=== PATIENT | female | born 1940 | race Hispanic/Latino ===

== ENCOUNTER 2017-02-20 14:11 | Inpatient (IN) | payer MEDICARE ==
[2017-02-20] MEDS ORDERED: NACL 0.9% 1000 ML 1,000 ML IV ONE (14:24)
[2017-02-20 14:59] LABS: Basophils % (Auto) 0.3 % (0.0-1.8); Eosinophils % (Auto) 0.5 % (0.0-4.3); Hematocrit 39.6 % (30.3-42.9); Hemoglobin 13.3 gm/dl (10.1-14.3); Mean Corpuscular HGB Conc 34 % (30-34); Mean Corpuscular Hemoglobin 32 pg (28-32); Mean Corpuscular Volume 95 fl (79-97); Platelet Count 259 K/mm3 (140-440); Red Blood Count 4.17 M/mm3 (3.65-5.03); Red Cell Distribution Width 13.3 % (13.2-15.2); White Blood Count 16.2 K/mm3 (4.5-11.0)
[2017-02-20 15:09] LABS: INR 1.02 (0.87-1.13)
[2017-02-20 15:15] LABS: Alanine Aminotransferase 13 units/L (7-56); Albumin 4.1 g/dL (3.9-5); Albumin/Globulin Ratio 1.3 %; Alkaline Phosphatase 65 units/L (35-129); Anion Gap 17 mmol/L; BUN/Creatinine Ratio 18; Blood Urea Nitrogen 14 mg/dL (7-17); Calcium 9.3 mg/dL (8.4-10.2); Carbon Dioxide 25 mmol/L (22-30); Chloride 101.5 mmol/L (98-107); Glucose 135 mg/dL (65-100); Lipase 19 units/L (13-60); Potassium 3.5 mmol/L (3.6-5.0); Sodium 140 mmol/L (137-145); Total Protein 7.3 g/dL (6.3-8.2)
--- NOTE | 2017-02-20 17:28 | Emergency Department Report ---
ED GI Bleed HPI - General Chief complaint: GI Bleed Stated complaint: RECTAL BLEEDING Time Seen by Provider: 02/20/17 16:38 Source: patient Mode of arrival: Ambulatory Limitations: No Limitations - History of Present Illness Initial comments: 76-year-old female with a history of elevated cholesterol and osteopenia presents to the Hospital complains of diarrhea and bloody stools. Symptoms started 2 days ago with diarrhea then subsequently became bloody yesterday and this a.m. This morning while ambulating to the bathroom patient states she had bright red blood running down her leg. She complains of intermittent crampy abdominal pain that has since resolved. Decreased by mouth intake report of nausea, vomiting, fever, recent travel, or sick contacts. Patient finished a unknown antibiotic 1 week ago for a cat bite. No previous abdominal surgery supportive. Patient states she had a unremarkable colonoscopy 6 months ago. PMD: Dr. Fernandes. Patient received previous colonoscopy from [facility] And was discharged from the practice after 3 unremarkable colonoscopies. Patient requested Dr. Eve Pollock's group since her is also seen by a GI group Severity scale (0 -10): 0 - Related Data Home Medications Medication Instructions Recorded Confirmed Last Taken AtorvaSTATin [Lipitor] 40 mg PO QHS 02/20/17 02/20/17 Unknown Ibuprofen [Motrin] 400 mg PO Q8H PRN 02/20/17 02/20/17 Unknown Allergies Allergy/AdvReac Type Severity Reaction Status Date / Time No Known Allergies Allergy Unverified 02/20/17 14:24 ED Review of Systems ROS: Stated complaint: RECTAL BLEEDING Other details as noted in HPI Comment: All other systems reviewed and negative Other: Constitutional: No fevers chills Eyes: No eye pain visual changes ENT: No ear pain or throat pain Neck: Denies pain Respiratory: Denies cough wheezing shortness of breath Cardiovascular: Denies chest pain, palpitations, syncope GI: As per HPI : Denies dysuria Musculoskeletal: Denies back pain, joint swelling Skin: Denies rash, lesions, erythema Neurologic: Denies headache, numbness, weakness Psychiatric: Denies suicidal ideation, hallucinations ED Past Medical Hx - Past Medical History Previous Medical History?: Yes Additional medical history: High cholesterol. Osteopenia - Surgical History Additional Surgical History: tonsillectomy - Social History Smoking Status: Never Smoker Substance Use Type: Alcohol - Medications Home Medications: Home Medications Medication Instructions Recorded Confirmed Last Taken Type AtorvaSTATin [Lipitor] 40 mg PO QHS 02/20/17 02/20/17 Unknown History Ibuprofen [Motrin] 400 mg PO Q8H PRN 02/20/17 02/20/17 Unknown History ED Physical Exam - General Limitations: No Limitations - Other Other exam information: General: No limitations, patient is alert in no acute distress Head exam: Atraumatic, normocephalic Eyes exam: Normal appearance, pupils equal reactive to light, extraocular movements intact ENT: Moist mucous membrane, normal oropharynx Neck exam: Normal inspection, full range of motion, no meningismus nontender Respiratory exam: Clear to auscultation bilateral, no wheezes, rales, crackles Cardiovascular: Normal rate and rhythm, normal heart sounds Abdomen: Soft, nondistended, and nontender, with normal bowel sounds, no rebound, or guarding Rectal: No external hemorrhoids or noticeable fissure. Dried bright red blood at the anus. Brown stool guaiac positive Extremity: Full range of motion normal inspection no deformity Back: Normal Inspection, full range of motion, no tenderness Neurologic: Alert, oriented x3, cranial nerves intact, no motor or sensory deficit Psychiatric: normal affect, normal mood Skin: Warm, dry, intact ED Course Vital Signs 02/20/17 02/20/17 02/20/17 14:12 15:52 16:01 Temperature 97.6 F Pulse Rate 115 H 108 H 104 H Respiratory 16 16 15 Rate Blood Pressure 125/65 144/88 O2 Sat by Pulse 95 97 Oximetry 02/20/17 02/20/17 02/20/17 16:15 16:24 16:30 Temperature Pulse Rate 93 H 115 H 103 H Respiratory 12 18 14 Rate Blood Pressure 118/69 128/65 O2 Sat by Pulse 98 100 97 Oximetry 02/20/17 02/20/17 02/20/17 16:45 17:00 17:15 Temperature Pulse Rate 102 H 93 H 93 H Respiratory 13 11 L 22 Rate Blood Pressure 122/78 117/80 117/80 O2 Sat by Pulse 100 100 Oximetry 02/20/17 18:25 Temperature Pulse Rate 103 H Respiratory 20 Rate Blood Pressure 148/101 O2 Sat by Pulse 96 Oximetry - Reevaluation(s) Reevaluation #1: 02/20/17 17:28 Normal saline initiated. Patient pain-free. CT pending - Consultations Consultation #1: 02/20/17 18:[address] Briceno GI physician registered nurse practitioner. Recommend stool studies, admission and overnight observation. Unlikely that repeat colonoscopy will be performed at this time. Rec vijay and reed ED Medical Decision Making - Lab Data Result diagrams: 02/20/17 14:40 02/20/17 14:40 Lab Results 02/20/17 02/20/17 02/20/17 Range/Units 14:40 14:40 14:40 WBC 16.2 H (4.5-11.0) K/mm3 RBC 4.17 (3.65-5.03) M/mm3 Hgb 13.3 (10.1-14.3) gm/dl Hct 39.6 (30.3-42.9) % MCV 95 (79-97) fl MCH 32 (28-32) pg MCHC 34 (30-34) % RDW 13.3 (13.2-15.2) % Plt Count 259 (140-440) K/mm3 Lymph % (Auto) 12.9 L (13.4-35.0) % [place] % (Auto) 5.6 (0.0-7.3) % Eos % (Auto) 0.5 (0.0-4.3) % Baso % (Auto) 0.3 (0.0-1.8) % Lymph # 2.1 (1.2-5.4) K/mm3 [place] # 0.9 H (0.0-0.8) K/mm3 Eos # 0.1 (0.0-0.4) K/mm3 Baso # 0.0 (0.0-0.1) K/mm3 Seg Neutrophils % 80.7 H (40.0-70.0) % Seg Neutrophils # 13.1 H (1.8-7.7) K/mm3 PT 13.9 (12.2-14.9) Sec. INR 1.02 (0.87-1.13) APTT 33.0 (24.2-36.6) Sec. Sodium 140 (137-145) mmol/L Potassium 3.5 L (3.6-5.0) mmol/L Chloride 101.5 (98-107) mmol/L Carbon Dioxide 25 (22-30) mmol/L Anion Gap 17 mmol/L BUN 14 (7-17) mg/dL Creatinine 0.8 (0.7-1.2) mg/dL Estimated GFR > 60 ml/min BUN/Creatinine Ratio 18 % Glucose 135 H (65-100) mg/dL Calcium 9.3 (8.4-10.2) mg/dL Total Bilirubin 0.50 (0.1-1.2) mg/dL AST 10 (5-40) units/L ALT 13 (7-56) units/L Alkaline Phosphatase 65 (35-129) units/L Total Protein 7.3 (6.3-8.2) g/dL Albumin 4.1 (3.9-5) g/dL Albumin/Globulin Ratio 1.3 % Lipase 19 (13-60) units/L Blood Type Antibody Screen PARRISH Antibody Screen 02/20/17 Range/Units 14:41 WBC (4.5-11.0) K/mm3 RBC (3.65-5.03) M/mm3 Hgb (10.1-14.3) gm/dl Hct (30.3-42.9) % MCV (79-97) fl MCH (28-32) pg MCHC (30-34) % RDW (13.2-15.2) % Plt Count (140-440) K/mm3 Lymph % (Auto) (13.4-35.0) % [place] % (Auto) (0.0-7.3) % Eos % (Auto) (0.0-4.3) % Baso % (Auto) (0.0-1.8) % Lymph # (1.2-5.4) K/mm3 [place] # (0.0-0.8) K/mm3 Eos # (0.0-0.4) K/mm3 Baso # (0.0-0.1) K/mm3 Seg Neutrophils % (40.0-70.0) % Seg Neutrophils # (1.8-7.7) K/mm3 PT (12.2-14.9) Sec. INR (0.87-1.13) APTT (24.2-36.6) Sec. Sodium (137-145) mmol/L Potassium (3.6-5.0) mmol/L Chloride (98-107) mmol/L Carbon Dioxide (22-30) mmol/L Anion Gap mmol/L BUN (7-17) mg/dL Creatinine (0.7-1.2) mg/dL Estimated GFR ml/min BUN/Creatinine Ratio % Glucose (65-100) mg/dL Calcium (8.4-10.2) mg/dL Total Bilirubin (0.1-1.2) mg/dL AST (5-40) units/L ALT (7-56) units/L Alkaline Phosphatase (35-129) units/L Total Protein (6.3-8.2) g/dL Albumin (3.9-5) g/dL Albumin/Globulin Ratio % Lipase (13-60) units/L Blood Type O NEGATIVE Antibody Screen TNR PARRISH Antibody Screen Negative - Radiology Data Radiology results: report reviewed CT abdomen and pelvis IV contrast: Nonspecific colitis involving the left colon and proximal sigmoid colon. No diverticulosis to suggest acute diverticulitis. Findings may be infectious, inflammatory, or possibly ischemic - Medical Decision Making Other differential: hemorrhoids, anal fissure Pain-free. Antibiotics initiated. Plan to admit to hospital for further treatment and monitoring and GI consultation - Differential Diagnosis gastroenteritis, enteritis, infectious colitis, ischemic colitis, diverticu Critical Care Time: No Critical care attestation.: If time is entered above; I have spent that time in minutes in the direct care of this critically ill patient, excluding procedure time. ED Disposition Clinical Impression: Colitis, Bloody diarrhea Disposition: OP ADMIT IP TO THIS HOSP Is pt being admited?: Yes Condition: Stable Time of Disposition: 19:32 (Dr Mccollum/hosp)
--- NOTE | 2017-02-20 18:42 | Cat Scan Report ---
FINAL REPORT PROCEDURE: CT ABDOMEN PELVIS W CON TECHNIQUE: Computerized axial tomography of the abdomen and pelvis was performed after the IV injection of iodinated nonionic contrast. HISTORY: abd pain, bloody diarhea COMPARISON: No prior studies are available for comparison. FINDINGS: Visualized lower thorax: Minimal atelectasis in the right posterior lung base. Liver: Normal size and attenuation. Spleen: Normal size and attenuation. Gallbladder and biliary system: Gallbladder is present. No biliary ductal dilatation. Pancreas: Normal. Adrenals: Normal. Kidneys: Normal. GI tract: There is wall thickening and mild stranding involving the left colon and proximal sigmoid colon, compatible with nonspecific colitis. There is no significant diverticulosis to suggest acute diverticulitis. Moderate volume of stool is present in the colon. Appendix does not appear inflamed. No bowel obstruction. No extraluminal air or abscess is seen. Lymph nodes and mesentery: Normal. Vasculature: Normal. Bladder: Normal. Reproductive organs: Grossly unremarkable. Peritoneum: Small amount of fluid is present in the pelvis. Musculoskeletal structures: No significant abnormality. Other: Thoracolumbar spine degenerative disc and facet arthritic changes. IMPRESSION: Nonspecific colitis involving the left colon and proximal sigmoid colon. No diverticulosis to suggest acute diverticulitis. Findings may be infectious, inflammatory, or possibly ischemic.
[2017-02-20] MEDS ORDERED: LEVAQUIN 750MG/150ML 750 MG/150 ML BAG IV ONE (19:31)
--- NOTE | 2017-02-20 21:43 | History and Physical Report ---
History of Present Illness Date of examination: 02/20/17 Date of admission: 02/20/17 19:54 Chief complaint: Chief complaint: Bloody stools since last night. History of present illness: History of present illness: 76-year-old female with history of hyperlipidemia and osteopenia comes in for bloody stools per rectum since yesterday. Intermittent. Feels weak. Not lightheaded. Recently finished antibiotic course. No fever no chills. Patient had about 3 colonoscopies for polyps and screening by [facility]. Abdominal cramping present which is resolved. Pain is about 5 or 10. No recent travel. No chest pain. No shortness of breath. No foul-smelling stools. Review of System: Constitutional: no fever, no chills, no weight loss Ears, eyes, nose, mouth and throat: no nasal congestion, no nasal discharge, no sinus pressure, no vision change, no red eye. Neck: No neck pain or rigidity. Cardiovascular: No chest pain, no orthopnea, no palpitations, no leg swelling Respiratory: No shortness of breath, no cough, no congestion, no wheezing Gastrointestinal: See HPI Genitourinary : no dysuria, no hematuria Musculoskeletal: no joint swelling or muscle ache Integumentary: no rash, no pruritis Neurological: no parathesias, no numbness, no tingling Endocrine: no cold or heat intolerance, no polyuria or polydipsia Hematologic/Lymphatic: no easy bruising, no easy bleeding, no gland swelling Allergic/Immunologic: no urticaria, no angioedema. Past History Past Medical History: hyperlipidemia, other (osteopenia) Past Surgical History: tonsillectomy Social history: no significant social history, lives with family, full code Family history: no significant family history Medications and Allergies Allergies Allergy/AdvReac Type Severity Reaction Status Date / Time No Known Allergies Allergy Unverified 02/20/17 14:24 Home Medications Medication Instructions Recorded Confirmed Last Taken Type AtorvaSTATin [Lipitor] 40 mg PO QHS 02/20/17 02/20/17 Unknown History Ibuprofen [Motrin] 400 mg PO Q8H PRN 02/20/17 02/20/17 Unknown History Active Meds: Active Medications Metronidazole (Flagyl 500 Mg/100 Ml) 500 mg in 100 mls @ 200 mls/hr IV ONCE THEODORE Review of Systems All systems: negative Exam - Physical Exam Narrative exam: Lying comfortably - Constitutional Vitals: Temp Pulse Resp BP Pulse Ox 97.6 F 93 H 24 147/70 99 02/20/17 14:12 02/20/17 20:45 02/20/17 20:45 02/20/17 20:45 02/20/17 20:45 General appearance: Present: no acute distress, well-nourished - EENT Eyes: Present: PERRL ENT: hearing intact, clear oral mucosa - Neck Neck: Present: supple, normal ROM - Respiratory Respiratory effort: normal Respiratory: bilateral: CTA - Cardiovascular Heart rate: 80 Rhythm: regular (80/m) Heart Sounds: Present: S1 & S2. Absent: rub, click - Extremities Extremities: no ischemia, pulses intact, pulses symmetrical, No edema Peripheral Pulses: within normal limits - Abdominal General gastrointestinal: Present: soft, non-tender, non-distended, normal bowel sounds, other (occult blood positive. Bright red blood on the glove finger.) Female genitourinary: Present: normal - Rectal Rectal Exam: stool bloody - Integumentary Integumentary: Present: clear, warm, dry - Musculoskeletal Musculoskeletal: gait normal, strength equal bilaterally - Psychiatric Psychiatric: appropriate mood/affect, intact judgment & insight - Neurologic Neurologic: CNII-XII intact, moves all extremities - Allied Health Allied health notes reviewed: nursing, case management Results - Labs CBC & Chem 7: 02/20/17 14:40 02/20/17 14:40 Labs: Laboratory Last Values WBC 16.2 K/mm3 (4.5-11.0) H 02/20/17 14:40 RBC 4.17 M/mm3 (3.65-5.03) 02/20/17 14:40 Hgb 13.3 gm/dl (10.1-14.3) 02/20/17 14:40 Hct 39.6 % (30.3-42.9) 02/20/17 14:40 MCV 95 fl (79-97) 02/20/17 14:40 MCH 32 pg (28-32) 02/20/17 14:40 MCHC 34 % (30-34) 02/20/17 14:40 RDW 13.3 % (13.2-15.2) 02/20/17 14:40 Plt Count 259 K/mm3 (140-440) 02/20/17 14:40 Lymph % (Auto) 12.9 % (13.4-35.0) L 02/20/17 14:40 [place] % (Auto) 5.6 % (0.0-7.3) 02/20/17 14:40 Eos % (Auto) 0.5 % (0.0-4.3) 02/20/17 14:40 Baso % (Auto) 0.3 % (0.0-1.8) 02/20/17 14:40 Lymph # 2.1 K/mm3 (1.2-5.4) 02/20/17 14:40 [place] # 0.9 K/mm3 (0.0-0.8) H 02/20/17 14:40 Eos # 0.1 K/mm3 (0.0-0.4) 02/20/17 14:40 Baso # 0.0 K/mm3 (0.0-0.1) 02/20/17 14:40 Seg Neutrophils % 80.7 % (40.0-70.0) H 02/20/17 14:40 Seg Neutrophils # 13.1 K/mm3 (1.8-7.7) H 02/20/17 14:40 PT 13.9 Sec. (12.2-14.9) 02/20/17 14:40 INR 1.02 (0.87-1.13) 02/20/17 14:40 APTT 33.0 Sec. (24.2-36.6) 02/20/17 14:40 Sodium 140 mmol/L (137-145) 02/20/17 14:40 Potassium 3.5 mmol/L (3.6-5.0) L 02/20/17 14:40 Chloride 101.5 mmol/L (98-107) 02/20/17 14:40 Carbon Dioxide 25 mmol/L (22-30) 02/20/17 14:40 Anion Gap 17 mmol/L 02/20/17 14:40 BUN 14 mg/dL (7-17) 02/20/17 14:40 Creatinine 0.8 mg/dL (0.7-1.2) 02/20/17 14:40 Estimated GFR > 60 ml/min 02/20/17 14:40 BUN/Creatinine Ratio 18 % 02/20/17 14:40 Glucose 135 mg/dL (65-100) H 02/20/17 14:40 Calcium 9.3 mg/dL (8.4-10.2) 02/20/17 14:40 Total Bilirubin 0.50 mg/dL (0.1-1.2) 02/20/17 14:40 AST 10 units/L (5-40) 02/20/17 14:40 ALT 13 units/L (7-56) 02/20/17 14:40 Alkaline Phosphatase 65 units/L (35-129) 02/20/17 14:40 Total Protein 7.3 g/dL (6.3-8.2) 02/20/17 14:40 Albumin 4.1 g/dL (3.9-5) 02/20/17 14:40 Albumin/Globulin Ratio 1.3 % 02/20/17 14:40 Lipase 19 units/L (13-60) 02/20/17 14:40 Blood Type O NEGATIVE 02/20/17 14:41 Antibody Screen TNR 02/20/17 14:41 PARRISH Antibody Screen Negative 02/20/17 14:41 - Imaging and Cardiology CT scan - abdomen: report reviewed (nonspecific colitis involving the left colon. No diverticulitis.) Assessment and Plan Advance Directives: Yes (full code) VTE prophylaxis?: Mechanical Contraindication Mechanical VTE Prophylaxis: Contraindicated Plan of care discussed with patient/family: Yes - Patient Problems (1) Colitis Current Visit: Yes Status: Acute Plan to address problem: Check hemoglobin and hematocrit every 6-8 hours. Transfuse if necessary. Patient is started on IV Flagyl empirically. J consult requested. (2) Lower GI bleed Current Visit: Yes Status: Acute Plan to address problem: Monitor hemoglobin and hematocrit every 6-8 hours and transfuse as necessary. Patient started on IV Flagyl. Differential diagnosis of diverticulosis versus colitis versus ischemic colitis. GI consult requested. Patient will need a colonoscopy. Supportive care until then. We will keep the patient nothing by mouth. (3) Hypokalemia Current Visit: Yes Status: Acute Plan to address problem: Mild supplemented (4) Hyperlipidemia Current Visit: Yes Status: Chronic Qualifiers: Hyperlipidemia type: mixed hyperlipidemia Qualified Code(s): E78.2 - Mixed hyperlipidemia Plan to address problem: Will hold the statins and resume when patient is discharged (5) DVT prophylaxis Current Visit: Yes Status: Acute Plan to address problem: SCDs only
[2017-02-20] MEDS ORDERED: ZOFRAN IV PRN (21:52)
[2017-02-20] MEDS ORDERED: TYLENOL PO PRN (21:52)
[2017-02-20] MEDS ORDERED: DULCOLAX PR PRN (21:52)
[2017-02-20] MEDS ORDERED: DILAUDID IV PRN (21:52)
[2017-02-20] MEDS ORDERED: MILK OF MAGNESIA PO PRN (21:52)
[2017-02-20] MEDS ORDERED: FLAGYL 500 MG/100 ML 500 MG/100 ML BAG IV SCH (22:00)
[2017-02-20] MEDS ORDERED: D5NS 1,000 ML IV SCH (22:00)
[2017-02-20] MEDS: FLAGYL 500 MG/100 ML 500 MG/100 ML BAG IV SCH (22:42)
[2017-02-20] MEDS: PEPCID IV SCH (22:49)
[2017-02-20] MEDS: KCL 10MEQ/100ML 10 MEQ/100 ML BAG IV SCH (23:42)
[2017-02-21] MEDS: KCL 10MEQ/100ML 10 MEQ/100 ML BAG IV SCH (01:00)
[2017-02-21] MEDS: FLAGYL 500 MG/100 ML 500 MG/100 ML BAG IV SCH ×3 (03:09→14:25)
[2017-02-21 04:46] LABS: Basophils % (Auto) 0.2 % (0.0-1.8); Eosinophils % (Auto) 1.4 % (0.0-4.3); Hematocrit 35.3 % (30.3-42.9); Hemoglobin 12.3 gm/dl (10.1-14.3); Mean Corpuscular HGB Conc 35 % (30-34); Mean Corpuscular Hemoglobin 33 pg (28-32); Mean Corpuscular Volume 95 fl (79-97); Platelet Count 224 K/mm3 (140-440); Red Blood Count 3.73 M/mm3 (3.65-5.03); Red Cell Distribution Width 13.2 % (13.2-15.2); White Blood Count 13.6 K/mm3 (4.5-11.0)
[2017-02-21 05:07] LABS: Alanine Aminotransferase 10 units/L (7-56); Albumin 3.5 g/dL (3.9-5); Albumin/Globulin Ratio 1.2 %; Alkaline Phosphatase 54 units/L (35-129); Anion Gap 16 mmol/L; BUN/Creatinine Ratio 18; Blood Urea Nitrogen 11 mg/dL (7-17); Calcium 8.7 mg/dL (8.4-10.2); Carbon Dioxide 26 mmol/L (22-30); Chloride 105.4 mmol/L (98-107); Glucose 95 mg/dL (65-100); Sodium 143 mmol/L (137-145); Total Protein 6.4 g/dL (6.3-8.2)
--- NOTE | 2017-02-21 10:00 | Progress Note ---
Assessment and Plan Assessment and plan: Patient is a 76-year-old female with history of hyperlipidemia and osteopenia comes in for bloody stools per rectum since yesterday and diarrhea. Intermittent. Feels weak. Not lightheaded. Recently finished antibiotic course. No fever no chills. Patient had about 3 colonoscopies for polyps and screening by [place] [facility]. Abdominal cramping present which is resolved. Pain is about 5 or 10. No recent travel. No chest pain. No shortness of breath. No foul-smelling stools. Patient reports recent abx for cat bite 1 week ago GI bleed possible Lower * occult blood positive, Hgb is stable, will change H/H check to daily, continue flagyl, GI consulted, Supportive care Colitis, possible Bacterial * continue abx as noted above. Hypokalemia * replaced Hyperlipidemia * continue statin DVT/GI prophy * SCD Hospitalist Physical - Constitutional Vitals: Temp Pulse Resp BP Pulse Ox 97.6 F 94 H 18 155/66 99 02/21/17 08:00 02/21/17 08:00 02/21/17 08:00 02/21/17 08:00 02/21/17 08:00 General appearance: Present: no acute distress, well-nourished Results - Labs CBC & Chem 7: 02/21/17 04:15 02/21/17 04:15 Labs: Laboratory Last Values WBC 13.6 K/mm3 (4.5-11.0) H 02/21/17 04:15 RBC 3.73 M/mm3 (3.65-5.03) 02/21/17 04:15 Hgb 12.3 gm/dl (10.1-14.3) 02/21/17 04:15 Hct 35.3 % (30.3-42.9) 02/21/17 04:15 MCV 95 fl (79-97) 02/21/17 04:15 MCH 33 pg (28-32) H 02/21/17 04:15 MCHC 35 % (30-34) H 02/21/17 04:15 RDW 13.2 % (13.2-15.2) 02/21/17 04:15 Plt Count 224 K/mm3 (140-440) 02/21/17 04:15 Lymph % (Auto) 17.9 % (13.4-35.0) 02/21/17 04:15 [place] % (Auto) 7.7 % (0.0-7.3) H 02/21/17 04:15 Eos % (Auto) 1.4 % (0.0-4.3) 02/21/17 04:15 Baso % (Auto) 0.2 % (0.0-1.8) 02/21/17 04:15 Lymph # 2.4 K/mm3 (1.2-5.4) 02/21/17 04:15 [place] # 1.1 K/mm3 (0.0-0.8) H 02/21/17 04:15 Eos # 0.2 K/mm3 (0.0-0.4) 02/21/17 04:15 Baso # 0.0 K/mm3 (0.0-0.1) 02/21/17 04:15 Seg Neutrophils % 72.8 % (40.0-70.0) H 02/21/17 04:15 Seg Neutrophils # 9.9 K/mm3 (1.8-7.7) H 02/21/17 04:15 PT 13.9 Sec. (12.2-14.9) 02/20/17 14:40 INR 1.02 (0.87-1.13) 02/20/17 14:40 APTT 33.0 Sec. (24.2-36.6) 02/20/17 14:40 Sodium 143 mmol/L (137-145) 02/21/17 04:15 Potassium 4.0 mmol/L (3.6-5.0) 02/21/17 04:15 Chloride 105.4 mmol/L (98-107) 02/21/17 04:15 Carbon Dioxide 26 mmol/L (22-30) 02/21/17 04:15 Anion Gap 16 mmol/L 02/21/17 04:15 BUN 11 mg/dL (7-17) 02/21/17 04:15 Creatinine 0.6 mg/dL (0.7-1.2) L 02/21/17 04:15 Estimated GFR > 60 ml/min 02/21/17 04:15 BUN/Creatinine Ratio 18 % 02/21/17 04:15 Glucose 95 mg/dL (65-100) 02/21/17 04:15 Calcium 8.7 mg/dL (8.4-10.2) 02/21/17 04:15 Total Bilirubin 0.50 mg/dL (0.1-1.2) 02/21/17 04:15 AST 10 units/L (5-40) 02/21/17 04:15 ALT 10 units/L (7-56) 02/21/17 04:15 Alkaline Phosphatase 54 units/L (35-129) 02/21/17 04:15 Total Protein 6.4 g/dL (6.3-8.2) 02/21/17 04:15 Albumin 3.5 g/dL (3.9-5) L 02/21/17 04:15 Albumin/Globulin Ratio 1.2 % 02/21/17 04:15 Lipase 19 units/L (13-60) 02/20/17 14:40 Blood Type O NEGATIVE 02/20/17 14:41 Antibody Screen TNR 02/20/17 14:41 PARRISH Antibody Screen Negative 02/20/17 14:41
[2017-02-21] MEDS ORDERED: NACL P/F VIAL (10 ML) 10 ML ONE (11:23)
[2017-02-21] MEDS: PEPCID IV SCH (11:23)
--- NOTE | 2017-02-21 14:28 | Gastroenterology Consultation ---
History of Present Illness - Reason for Consult Consult date: 02/21/17 colitis, rectal bleeding Requesting physician: LEXIS COFFEY - History of Present Illness Patient is a 76 y/o female with h/o HLD and osteopenia who presented to the ER with c/o rectal bleeding, diarrhea, and abd cramps. Abd CT showed nonspecific colitis involving the left colon and proximal sigmoid but no diverticulosis to suggest diverticulitis. This afternoon, pt sitting up in bed. No distress noted. States her abd cramps have now resolved and she reports no signs of active bleeding overnight or this am. Denies fever, wt loss, CP, SOB, dizziness , abd pain, N/V, hematemesis, melena, or constipation. Admits to occasional use of Ibuprofen. No hx of liver disease, but reports a Fhx of colon Cancer with her sister diagnosed in her 60s. Last colonoscopy was in 2014 that revealed internal hemorrhoid but otherwise normal. Past History Past Medical History: hyperlipidemia, other (osteopenia) Past Surgical History: tonsillectomy Social history: no significant social history, lives with family, full code Family history: no significant family history Medications and Allergies Allergies Allergy/AdvReac Type Severity Reaction Status Date / Time No Known Allergies Allergy Unverified 02/20/17 14:24 Home Medications Medication Instructions Recorded Confirmed Last Taken Type AtorvaSTATin [Lipitor] 40 mg PO QHS 02/20/17 02/20/17 Unknown History Ibuprofen [Motrin] 400 mg PO Q8H PRN 02/20/17 02/20/17 Unknown History Active Meds: Active Medications Acetaminophen (Tylenol) 650 mg PO Q4H PRN PRN Reason: Pain MILD(1-3)/Fever >100.5/INFANTE Bisacodyl (Dulcolax) 10 mg WA QDAY PRN PRN Reason: Constipation unrelieved by MOM Famotidine (Pepcid) 20 mg IV BID THEODORE Last Admin: 02/21/17 11:23 Dose: 20 mg Hydromorphone HCl (Dilaudid) 0.5 mg IV Q3H PRN PRN Reason: Pain , Severe (7-10) Metronidazole (Flagyl 500 Mg/100 Ml) 500 mg in 100 mls @ 200 mls/hr IV ONCE THEODORE Last Infusion: 02/20/17 23:12 Dose: Infused Dextrose/Sodium Chloride (D5ns) 1,000 mls @ 75 mls/hr IV DIRECT THEODORE Last Admin: 02/20/17 22:37 Dose: 75 mls/hr Metronidazole (Flagyl 500 Mg/100 Ml) 500 mg in 100 mls @ 100 mls/hr IV Q8H THEODORE PRN Reason: Protocol Last Admin: 02/21/17 03:09 Dose: 100 mls/hr Magnesium Hydroxide (Milk Of Magnesia) 30 ml PO Q4H PRN PRN Reason: Constipation Ondansetron HCl (Zofran) 4 mg IV Q8H PRN PRN Reason: N/V unrelieved by Reglan Review of Systems - Review of Systems All systems: negative Gastrointestinal: hematochezia Exam - Constitutional Vital Signs: Temp Pulse Resp BP Pulse Ox 97.6 F 94 H 18 155/66 99 02/21/17 08:00 02/21/17 08:00 02/21/17 08:00 02/21/17 08:00 02/21/17 08:00 General appearance: no acute distress, well-nourished - EENT Eyes: PERRL, EOM intact ENT: hearing intact - Neck Neck: supple, normal ROM - Respiratory Respiratory: bilateral: CTA - Cardiovascular Rhythm: regular Heart Sounds: Present: S1 & S2 Extremities: No edema - Gastrointestinal General gastrointestinal: Present: soft, non-tender, non-distended, normal bowel sounds - Integumentary Integumentary: Present: warm, dry - Neurologic Neurological: alert and oriented x3 - Labs CBC & Chem 7: 02/21/17 04:15 02/21/17 04:15 Lab Results: Laboratory Results - last 24 hr 02/21/17 02/21/17 04:15 04:15 WBC 13.6 H RBC 3.73 Hgb 12.3 Hct 35.3 MCV 95 MCH 33 H MCHC 35 H RDW 13.2 Plt Count 224 Lymph % (Auto) 17.9 [place] % (Auto) 7.7 H Eos % (Auto) 1.4 Baso % (Auto) 0.2 Lymph # 2.4 [place] # 1.1 H Eos # 0.2 Baso # 0.0 Seg Neutrophils % 72.8 H Seg Neutrophils # 9.9 H Sodium 143 Potassium 4.0 Chloride 105.4 Carbon Dioxide 26 Anion Gap 16 BUN 11 Creatinine 0.6 L Estimated GFR > 60 BUN/Creatinine Ratio 18 Glucose 95 Calcium 8.7 Total Bilirubin 0.50 AST 10 ALT 10 Alkaline Phosphatase 54 Total Protein 6.4 Albumin 3.5 L Albumin/Globulin Ratio 1.2 Assessment and Plan 1.GI bleed 2.hematochezia 3.colitis -afebrile -WBC 13.6-trending down -HGB 12.3 -hemodynamically stable -no signs of active bleeding overnight or today -abd CT showed nonspecific colitis involving the left colon and proximal sigmoid , but no diverticulosis to suggest diverticulitis -etiology unclear- possible inflammatory vs infection vs ischemic (unlikely with no pain) -clinically pt is improved with no BMs overnight/today and no abd pain -continue to monitor H/H -continue current meds and supportive care -advance diet -pt is okay to be d/c from a GI standpoint with a f/u appt in clinic in 2-3 weeks to schedule outpatient colonoscopy -will sign off
[2017-02-21 14:40] VITALS: BP 145/77
--- NOTE | 2017-02-21 16:08 | Discharge Summary ---
Providers - Providers Date of Admission: 02/20/17 19:54 Attending physician: ELLI ARREDONDO MD Primary care physician: JOSE RICHMOND Hospitalization Reason for admission: diarrhea and abdominal pain Condition: Stable Hospital course: Patient is a 76-year-old female with history of hyperlipidemia and osteopenia comes in for bloody stools per rectum since yesterday and diarrhea. Intermittent. Feels weak. Not lightheaded. Recently finished antibiotic course. No fever no chills. Patient had about 3 colonoscopies for polyps and screening by [facility]. Abdominal cramping present which is resolved. Pain is about 5 or 10. No recent travel. No chest pain. No shortness of breath. No foul-smelling stools. Patient reports recent abx for cat bite 1 week ago. Imaging studies show nonspecific colitis she admits to occasional use of Ibuprofen. No hx of liver disease, but reports a Fhx of colon Cancer with her sister diagnosed in her 60s. Last colonoscopy was in 2014 that revealed internal hemorrhoid but otherwise normal. patient to follow with PCP. Discharge diagnosis GI bleed possible Lower Colitis, possible Bacterial Hypokalemia Hyperlipidemia Disposition: DC-01 TO HOME OR SELFCARE Time spent for discharge: 35 mins Core Measure Documentation - Palliative Care Palliative Care/ Comfort Measures: Not Applicable - Core Measures Any of the following diagnoses?: none - VTE Discharge Requirements Deep Vein Thrombosis/Pulmonary Embolism Present on Admission: No Exam - Physical Exam Narrative exam: VITAL SIGNS: Reviewed. GENERAL: The patient appeared well nourished and normally developed. Vital signs as documented. HEAD: No signs of head trauma. EYES: Pupils are equal. Extraocular motions intact. EARS: Hearing grossly intact. MOUTH: Oropharynx is normal. NECK: No adenopathy, no JVD. CHEST: Chest with clear breath sounds bilaterally. No wheezes, rales, or rhonchi. CARDIAC: Regular rate and rhythm. S1 and S2, without murmurs, gallops, or rubs. VASCULAR: No Edema. Peripheral pulses normal and equal in all extremities. ABDOMEN: Soft, without detectable tenderness. No sign of distention. No rebound or guarding, and no masses palpated. Bowel Sounds normal. MUSCULOSKELETAL: Good range of motion of all major joints. Extremities without clubbing, cyanosis or edema. NEUROLOGIC EXAM: Alert and oriented x 3. No focal sensory or strength deficits. Speech normal. Follows commands. PSYCHIATRIC: Mood normal. SKIN: No rash or lesions. - Constitutional Vitals: Temp Pulse Resp BP Pulse Ox 97.8 F 89 18 145/77 97 02/21/17 14:00 02/21/17 14:00 02/21/17 14:00 02/21/17 14:00 02/21/17 14:00 Plan Activity: advance as tolerated, fall precautions Diet: low fat Follow up with: JOSE RICHMOND JR, MD [Primary Care Provider] - 3-5 Days ANUSHA TAYLOR MD [Staff Physician] - 7 Days Prescriptions: metroNIDAZOLE [Flagyl] 500 mg PO Q12HR 5 Days traMADol [Ultram] 50 mg PO Q6HR PRN #14 tablet PRN Reason: Pain
== END 2017-02-21 17:36 | disposition home or self-care (01) | DRG 372 ==
LOC: ED 14:11 → CC2 19:54
PROVIDERS: ADMIT Internal Medicine; ATTEND Internal Medicine
DX: A04.9 Bacterial intestinal infection, unspecified (principal); K92.2 Gastrointestinal hemorrhage, unspecified; E87.6 Hypokalemia; E78.5 Hyperlipidemia, unspecified; Z80.0 Family history of malignant neoplasm of digestive organs
CPT/HCPCS: 36415; 74177; 80053; 82271; 83690; 85025; 85610; 85730; 86850; 86900; 86901; 93005; 93010; 96360; 96361; J1956; J3480; J7030; J7042; Q9967

== ENCOUNTER 2017-11-13 11:49 | Emergency (ER) | payer OTHER, MEDICARE ==
[2017-11-13] MEDS ORDERED: ULTRAM PO ONE (12:42)
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
--- NOTE | 2017-11-13 14:39 | XRay Report ---
LEFT HAND, 3 views: History: Left hand pain. The bony architecture is intact. Bony alignment is normal. No soft tissue abnormalities are seen. The joint spaces appear preserved. Mild degenerative changes are noted at the base of the thumb. IMPRESSION: No evidence for acute injury.
--- NOTE | 2017-11-13 14:40 | XRay Report ---
RIGHT FOREARM, 2 VIEWS: History: Right arm pain. A mildly displaced fracture is identified in the distal shaft of the ulna. Displacement measures 2-3 mm. The radius is intact. Mild distal soft tissue swelling is noted. IMPRESSION: Fracture, distal ulna.
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
[2017-11-14 00:58] VITALS: BP 136/72
== END 2017-11-13 15:11 | disposition home or self-care (01) ==
LOC: ED 11:49
DX: S52.221A Displaced transverse fracture of shaft of right ulna, initial encounter for closed fracture (principal); S63.642A Sprain of metacarpophalangeal joint of left thumb, initial encounter; K21.9 Gastro-esophageal reflux disease without esophagitis; E78.00 Pure hypercholesterolemia, unspecified; Z90.89 Acquired absence of other organs; V49.49XA Driver injured in collision with other motor vehicles in traffic accident, initial encounter; W22.10XA Striking against or struck by unspecified automobile airbag, initial encounter; Y93.89 Activity, other specified; Y92.89 Other specified places as the place of occurrence of the external cause; Y99.8 Other external cause status